=== PATIENT | male | born 1980 ===

== ENCOUNTER 2019-02-07 06:51 | Inpatient (IN) | payer OTHER ==
[~2019-02-07] VITALS: Ht 180.3 cm; Wt 112.5 kg
[2019-02-07] VITALS (15 sets, daily range): BP systolic 98–124; BP diastolic 57–80
[~2019-02-07 06:51] MED LIST: CLARITIN10 M2 ORAL; GLUCOSAMINE &1 EAC2 PO; VITAMIN C1000 M2 PO
[2019-02-07] MEDS ORDERED: ceFAZolin sod 1 GM in NS 55 ML IVPB ONE (07:00)
[2019-02-07] MEDS ORDERED: Thrombin 5000 units spray kit TOPIC ONE ×2 (07:18→10:12)
[2019-02-07] MEDS ORDERED: Vancomycin 1gm vial IVPB ONE (07:18)
[2019-02-07] MEDS ORDERED: Thrombin 5000 units TOPIC ONE ×3 (07:19→10:38)
[2019-02-07] MEDS ORDERED: Gelfoam Size TOPIC ONE ×2 (07:19→10:11)
[2019-02-07] MEDS ORDERED: Bacitracin 50000 Units Vial ONE (07:19)
[2019-02-07] MEDS ORDERED: Gelfoam Absorbable 1gm powder pkt TOPIC ONE ×2 (07:19→10:19)
[2019-02-07] MEDS ORDERED: Bupivacaine w/Epi 0.5% 30ml Vial INJ ONE (07:19)
--- NOTE | 2019-02-07 07:20 | NUR ---
IV LR WAS STARTED BY TORIE ARVIZU RN. NO S/S OF INFILTRATION. TYPE AND SCREEN WAS DRAWN.
[2019-02-07] MEDS ORDERED: Midazolam 2mg/2ml Inj ONE (07:41)
[2019-02-07] MEDS ORDERED: fentaNYL 100 mcg/2 mL IV ONE (07:41)
[2019-02-07] MEDS ORDERED: Lidocaine 1% MPF 10mg/ml 5ml ONE (07:42)
[2019-02-07] MEDS ORDERED: Zemuron 50mg/5ml Inj IV ONE (07:54)
[2019-02-07] MEDS ORDERED: Succinylcholine 20mg/ml 10ml vial ONE (07:54)
[2019-02-07] MEDS ORDERED: LR 1000ml ONE (09:00)
[2019-02-07] MEDS ORDERED: NS Irrig 1000ml ONE (09:00)
[2019-02-07] MEDS ORDERED: Sterile Water Irrig 1000ml IRRIG ONE (09:00)
[2019-02-07] MEDS ORDERED: Propofol 1,000mg/ 100ml btl IV ONE (09:00)
--- NOTE | 2019-02-07 09:24 | Pre-Procedure Note/Attestation ---
Pre-Procedure Note/Attestation Complete Prior to Procedure Procedure Narrative: l5s1 B laminoforaminotomy Indications for Procedure Pre-Operative Diagnosis: spinal stenosis with BLE radiculopathy Attestation I attest that I discussed the nature of the procedure; its benefits; risks and complications; and alternatives (and the risks and benefits of such alternatives ), prior to the procedure, with the patient (or the patient's legal field sales representative). I attest that, if there was a reasonable possibility of needing a blood transfusion, the patient (or the patient's legal field sales representative) was given the [facility] standardized written summary, pursuant to the Jordan Sumanth Blood Safety Act ([place] Health and Safety Code # 1645, as amended). I attest that I re-evaluated the patient just prior to the surgery and that there has been no change in the patient's H&P, except as documented below: Pako Flores MD Feb 07, 2019 09:24
[2019-02-07] MEDS ORDERED: BUPIVACAINE INJ ONE (09:34)
[2019-02-07] MEDS ORDERED: EPI INJ ONE (09:34)
[2019-02-07] MEDS ORDERED: Ketorolac 30mg Inj ONE (09:39)
[2019-02-07] MEDS ORDERED: Neostigmine 1mg/ml 10ml Inj ONE (09:39)
[2019-02-07] MEDS ORDERED: Sodium Chloride 10ml vial INJ ONE (09:39)
[2019-02-07] MEDS ORDERED: Glycopyrrolate 0.2mg/ml 1ml Vial ONE (09:39)
[2019-02-07] MEDS ORDERED: Morphine Sulfate 10mg/ml Inj ONE (09:39)
--- NOTE | 2019-02-07 09:52 | Anethesia Preoperative Eval ---
Anesthesia Pre-op PMH/ROS General Date of Evaluation: Feb 07, 2019 Time of Evaluation: 08:05 Anesthesiologist: Leno ASA Score: ASA 2 Mallampati Score Class I : Soft palate, uvula, fauces, pillars visible Class II: Soft palate, uvula, fauces visible Class III: Soft palate, base of uvula visible Class IV: Only hard plate visible Mallampati Classification: Class II Surgeon: Sandra Diagnosis: Lumbar radiculopathy Surgical Procedure: L5-S1 laminotomy Anesthesia History: none Family History: no anesthesia problems Allergies: Coded Allergies: No Known Allergies (Unverified , 02/03/19) Medications: see eMAR Patient NPO?: Yes NPO Date: Feb 06, 2019 NPO Time: 1900 Past Medical History Cardiovascular: Denies: HTN, CAD, ID, valve dz, arrhythmia, other Pulmonary: Denies: asthma, COPD, LAMONTE, other Gastrointestinal/Genitourinary: Reports: GERD; Denies: CRI, ESRD, other Neurologic/Psychiatric: Reports: other - chronic pain; Denies: dementia, CVA, depression/anxiety, TIA Endocrine: Denies: DM, hypothyroidism, steroids, other HEENT: Denies: cataract (L), cataract (R), glaucoma, [place] (L), [place] (R), other Hematology/Immune: Denies: anemia, DVT, bleeding disorder, other Musculoskeletal/Integumentary: Denies: OA, RA, DJD, DDD, edema, other Other: other - overweight PMH Narrative: as above PSxH Narrative: Elbow Fx ORIF Anesthesia Pre-op Phys. Exam Physician Exam Last Vital Signs Date Time Temp Pulse Resp B/P (MAP) Pulse Ox O2 Delivery O2 Flow Rate FiO2 02/07/19 07:22 Room Air 02/07/19 07:20 97.1 65 20 118/80 (93) 97 Constitutional: NAD Neurologic: CN 2-12 intact Cardiovascular: RRR, no M/R/G Respiratory: CTA Gastrointestinal: S/NT/ND Airway Exam Mallampati Score: Class II MO: full Neck: flexible ROM: full Teeth: intact Dentures: no upper, no lower Anesthesia Pre-op A/P Labs see chart Studies Pre-op Studies: EKG - NSR, CXR - WNL Risk Assessment & Plan Assessment: ASA 2 Plan: GA with Ett prone position, neuromonitoring Status Change Before Surgery: No Pre-Antibiotics Drug: Ancef 2gr. Given Within 1 Hr of Incision: Yes Time Given: 09:08 Feng Burr MD Feb 07, 2019 09:52
[2019-02-07] MEDS ORDERED: LR 1000ml 1,000 ML IVLG SCH (09:53)
[2019-02-07] MEDS ORDERED: DiphenhydrAMINE 50mg/ml Inj IVP PRN (10:00)
[2019-02-07] MEDS ORDERED: Acetaminophen (Non formulary) 100 ML IV ONE (10:00)
[2019-02-07] MEDS ORDERED: Meperidine 50mg/ml Inj(FOR RIGORS ONLY) IV PRN (10:00)
[2019-02-07] MEDS ORDERED: Ketorolac 30mg Inj IV PRN (10:00)
[2019-02-07] MEDS ORDERED: Hydromorphone 0.5mg/0.5ml inj IVP PRN ×2 (10:00→16:06)
[2019-02-07] MEDS ORDERED: Bacitracin 50000 Units Vial IRRIG ONE (10:12)
--- NOTE | 2019-02-07 11:11 | Brief Operative Note ---
Immediate Post Operative Note Operative Note Pre-op Diagnosis: spinal stenosis with BLE radiculopathy Procedure: B L5s1 laminoforaminotomy, L discectomy Post-op Diagnosis: same as pre-op Findings: consistent w/pre-op dx studies Surgeon: yeni Director Of Special Services: shayy aguirre Anesthesiologist: danielle Anesthesia: general Specimen: yes - disc Complications: none Condition: stable Fluids: 1L Estimated Blood Loss: volume - 50 Drains: none Implant(s) used?: No Pako Flores MD Feb 07, 2019 11:11
--- NOTE | 2019-02-07 11:19 | Immediate Post-Op Evaluation ---
Immediate Post-Op Evalulation Immediate Post-Op Evalulation Procedure: L5-S1 laminotomy with decompression Date of Evaluation: Feb 07, 2019 Time of Evaluation: 11:18 IV Fluids: 1000 Blood Products: none Estimated Blood Loss: <50 Urinary Output: 250 Blood Pressure Systolic: 104 Blood Pressure Diastolic: 64 Pulse Rate: 78 Respiratory Rate: 20 O2 Sat by Pulse Oximetry: 99 Temperature (Fahrenheit): 98.1 Pain Score (1-10): 1 Nausea: No Vomiting: No Complications none Patient Status: reacts, patent, extubated, none Hydration Status: adequate Feng Burr MD Feb 07, 2019 11:19
[2019-02-07] MEDS ORDERED: Metoclopramide 10mg/2ml Inj IVP PRN (13:09)
--- NOTE | 2019-02-07 14:04 | Diagnostic Imaging Report ---
INDICATION: Pain, intraoperative TECHNIQUE: Intraoperative imaging Fluoroscopy time: 2.3 seconds Total dose: 0.02444 mGym2 Total number of images: 2 COMPARISON: None FINDINGS: Surgical needles project posterior to the L5-S1 disc. Subsequently a surgical tool is projecting posterior to the L4-5 and L5-S1 discs. IMPRESSION: Intraoperative imaging, as described
--- NOTE | 2019-02-07 14:10 | Cardiology Progress Note ---
Assessment/Plan Assessment/Plan [id number] Objective Last 24 Hour Vital Signs Date Time Temp Pulse Resp B/P (MAP) Pulse Ox O2 Delivery O2 Flow Rate FiO2 02/07/19 13:46 Nasal Cannula 2.0 02/07/19 12:50 98.4 02/07/19 12:40 98.4 72 17 111/67 99 Nasal Cannula 3 02/07/19 12:30 77 18 113/75 99 Nasal Cannula 3 02/07/19 12:29 98.4 02/07/19 12:18 80 17 111/77 99 Nasal Cannula 3 02/07/19 12:14 76 14 111/69 100 Nasal Cannula 3 02/07/19 11:59 74 13 108/67 99 Simple Mask 6 02/07/19 11:40 70 13 100/62 99 Simple Mask 6 02/07/19 11:25 76 13 110/57 99 Simple Mask 6 02/07/19 11:19 77 13 98/60 99 Simple Mask 6 02/07/19 11:19 78 20 99 02/07/19 11:14 98.0 84 17 104/63 100 Simple Mask 6 02/07/19 07:22 Room Air 02/07/19 07:20 97.1 65 20 118/80 (93) 97 Jelani Stuart MD Feb 07, 2019 14:10
[2019-02-07] MEDS: D5 1/2NS 1,000 ML IV SCH (15:07)
[2019-02-07] MEDS: ceFAZolin sod 1 GM in D5W 55 ML IV SCH (15:07)
[2019-02-07] MEDS: Docusate 100mg cap ORAL SCH (17:11)
--- NOTE | 2019-02-07 19:00 | Operative Note - Dictated ---
DATE OF OPERATION: 02/07/2019 SURGEON: Pako Flores MD. THREADER OPERATOR: Dharmesh Cai PA-C. ANESTHESIA: Feng Burr M.D. ANESTHESIA TYPE: General endotracheal anesthesia. 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 PROCEDURE: 1. Bilateral L5-S1 laminal foraminotomy and partial medial facetectomy. 2. Left-sided diskectomy L5-S1. 3. Use of fluoroscopy for localization. 4. Use of operating microscope. 5. Neurodiagnostic monitoring. 6. Lysis of adhesions, left side L5-S1. ESTIMATED BLOOD LOSS: Minimal, less than 50 mL. COMPLICATIONS: None. FLUIDS: 1 liter. INDICATIONS: The patient is a very pleasant gentleman, 38 years old with fairly intractable left greater than right lower extremity radiculopathic pain. He was initially counseled with regards to surgical intervention. He did have epidural injections, which gave him good overall relief, but the effects have worn off. Initially, the plan was on the left-sided decompression only. However, the patient requested the right side also addressed as the effect of the epidural has completely worn off and now the right lower extremity radiculopathic pain has come back once again in addition to the persistent left lower extremity radiculopathy. The patient understood and wished to proceed. RISK NOTE: The patient was explained in detail risks, benefits of surgery to include, but not be limited to those of bleeding, infection, damage to nerves, vessels, tendons, anesthetic risk, allergic reaction, aspiration, possibly , specifically dural leak, disc reherniation, continued pain, and need for additional surgery was discussed. OPERATIVE PROCEDURE IN DETAIL: The patient was taken to the operating suite. After general endotracheal anesthesia was obtained, Smith catheter was placed. The patient was positioned prone onto a radiolucent Rayo table. The back was prepped and draped in usual sterile fashion. Two needles were placed at L4-L5 and L5-S1 for localization and verified radiographically. At this point, back was infiltrated with lidocaine and Marcaine with epinephrine. Incision was carried out from L4 through S1. Subperiosteal dissection was carried out. Self-retaining retractors were put into place after a curved curette was placed under the lamina of L5 and radiographically the level was confirmed. The microscope was then brought into place. Attention was first turned onto the left side, which was most problematic. Hemilaminectomy was performed with use of a high-speed drill, curved curette to mobilize the ligamentum flavum, and the ligamentum flavum was removed in a piecemeal fashion. 10 to 20 percent medial facetectomy was performed on the left side. There was a fair amount of fat in the epidural space consistent with epidural lipomatosis. At this point, the nerve root was gently medialized and there was noted to be extensive neovascularization and adhesions adjacent to the S1 nerve root consistent with chronic inflammatory changes. The epidural veins were all bipolar and meticulous mobilization of the nerve root allowed for comprehensive neurolysis. At this point, the disk was incised and a subligamentous disc extrusion was identified between the posterior longitudinal ligament and the posterior anulus. This was evacuated. The annular rent was identified and a down pushing curette allowed for mobilization of the disk space. Minimal diskectomy was performed so as to not disrupt the endplates. However, all loose disk fragments were removed with both pituitary as well as intradiscal irrigation. At this point, once satisfied with the diskectomy and decompression, FloSeal was applied. This area was packed off. Attention was then turned onto the right side and in an identical fashion hemilaminectomy was performed using high-speed drill, curved curettes, Kerrison punch, and the ligamentum flavum was removed in a piecemeal fashion. Nerve root was identified and it was shifted medially consistent with lateral recess stenosis. With a thorough laminectomy and partial medial facetectomy, the nerve root did then rebound into the normal anatomic position. Both foramen at L5-S1 were probed and noted to be patent. Copious irrigation was then performed. Meticulous hemostasis was achieved. Due to the patient's large body habitus, a 500 mg of vancomycin powder was then placed deep to the fascia. Fascia was repaired using #1 Vicryl. Subcutaneous closure using 2-0 Vicryl. Dermabond and sterile dressing was applied. The patient tolerated the procedure well. He was turned onto his back, awakened, and extubated. Sponge and needle counts were correct. Pako Andrey Flores DR: ROMARIO JOB#: [id number] CC:
[2019-02-07] MEDS ORDERED: Chloraseptic Spray 20mL Bottle ORAL PRN (19:30)
[2019-02-07] MEDS ORDERED: Milk of Magnesia 30ml Ud ORAL PRN (19:30)
--- NOTE | 2019-02-07 19:32 | NUR ---
HAND-OFF: Report given to JAILENE Morales.
[2019-02-07] MEDS ORDERED: HYDROmorphone 1mg/ml Carpuject SUBQ SCH (19:40)
[2019-02-07] MEDS ORDERED: Tylenol #3 tab (300mg/30mg) ORAL PRN (19:42)
--- NOTE | 2019-02-07 19:45 | NUR ---
NURSE NOTES: PATIENT IN BED, S/P LAMINOTOMY WITH DECOMPRESSION. DRESSING INTACT, DRY ON LOWER BACK. RH 18G INTACT, PATENT RUNNING FLUIDS. ON O2 3L VIA NC, NO SOB, NO ACUTE DISTRESS. SCDs IN USE ON BLE, ELEVATED ON PILLOW. BED IN LOWEST POSITION, LOCKED, ALARMS ON. CALL LIGHT IN REACH.
[2019-02-07] MEDS ORDERED: Tamsulosin 0.4mg cap ORAL SCH (20:30)
--- NOTE | 2019-02-07 21:45 | NUR ---
NURSE NOTES: Pt walked to toilet with walker+assistance and successfully voided.
[2019-02-07] MEDS: oxyCODONE 5mg IR tab ORAL PRN (22:00)
--- NOTE | 2019-02-07 22:15 | Consultation ---
DATE OF CONSULTATION: 02/07/2019 INTERNAL MEDICINE CONSULTATION CONSULTING PHYSICIAN: Jelani Stuart M.D. REFERRING PHYSICIAN: Pako Flores M.D. REASON FOR REFERRAL: Postoperative medical care. HISTORY OF PRESENT ILLNESS: A 38-year-old gentleman, who I am seeing postoperatively for continued medical care. The patient preoperatively had been evaluated by Dr. Bautista. Postoperatively, he denies any chest pain or shortness of breath. No PND. No orthopnea. He does have some degree of tickling in his throat. He thinks because of dry throat. No nausea or vomiting. PAST MEDICAL HISTORY: Positive for low back pain with radiculopathy, seasonal allergies, and history of mild abnormal liver function test that apparently resolved. PAST SURGICAL HISTORY: Includes epidural and left elbow surgery. ALLERGIES: He is not allergic to any medication. FAMILY HISTORY: Father at 54 of heart failure and diabetes. Mother at 56 of colon cancer. One brother and one sister are healthy. Three daughters healthy. SOCIAL HISTORY: He does not smoke at the present time. Denies any drug use and denies any marijuana use. REVIEW OF SYSTEMS: GASTROINTESTINAL: Negative. GENITOURINARY: Negative. PULMONARY: As mentioned, some coughing. CONSTITUTIONAL: Negative. NEUROLOGIC: Negative. PHYSICAL EXAMINATION: GENERAL: Shows to be a middle-aged gentleman, in no respiratory distress. NECK: Supple. No jugular venous distention. LUNGS: Clear to auscultation and percussion. CARDIAC: S1 is normal and S2 is normal. Regular rate and rhythm. No heaves, thrills, or gallops noted. ABDOMEN: Soft and nontender. Positive bowel sounds. EXTREMITY: Pneumatic compression stockings are in place. No clubbing, cyanosis, or edema. LABORATORY DATA: Laboratory values preoperatively has been reviewed from Dr. Bautista's notes. INR 1 and PTT of 26. Sodium 141, potassium 4.0, chloride 103, bicarb 29, BUN of 12, creatinine 0.9, and glucose of 91. White count 7, hemoglobin 15.4, and platelet count of 169,000. Total CPK of 74. TSH of 1.45. A1c of 5.5, and sedimentation rate of 3. Preop EKG was reviewed as well. ASSESSMENT: 1. Low back pain secondary to spinal stenosis. 2. Radiculopathy. PLAN: This patient was seen postoperatively by medical consultation for post L5-S1 laminoforaminotomy and left diskectomy. He is doing relatively well postoperatively. His vital signs seem to be stable with blood pressure 111/67 with heart rate 82, temperature 98.2, and 99% saturation on 3 liters. He will be followed postoperatively. His pneumatic compression stockings for DVT prophylaxis and incentive spirometer will be discussed with the patient. Hopefully, he will be able to ambulate soon and will be discharged tomorrow morning. Importance of incentive spirometer use were discussed with the patient. Jelani Stuart M.D. DR: DESHAWN JOB#: [id number] CC:
[2019-02-08] VITALS: BP 111/64
[2019-02-08] MEDS: ceFAZolin sod 1 GM in D5W 55 ML IV SCH ×2 (00:04→08:29)
[2019-02-08] MEDS: HYDROmorphone 1mg/ml Carpuject SUBQ PRN ×4 (00:13→20:29)
[2019-02-08] MEDS: D5 1/2NS 1,000 ML IV SCH ×3 (01:30→13:58)
--- NOTE | 2019-02-08 02:31 | Consultation ---
DATE OF CONSULTATION: 02/07/2019 ACUTE PAIN CONSULT CONSULTING PHYSICIAN: Cheko Arteaga M.D. REFERRING PHYSICIAN: Pako Flores M.D. HISTORY OF PRESENT ILLNESS: Dear Dr. Pako Flores, Thank you kindly for consulting me to evaluate and render an opinion as to how to proceed in the management of the patient's acute postoperative lumbar spine pain after his lumbar spine surgery today. 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 He injured his lumbar spine and failed epidural and conservative treatment. Today, he underwent lumbar spine decompressive surgery. He is complaining of 9/10 postoperative pain despite several doses of postoperative narcotic analgesic trials. On your request, I saw the patient for acute pain consultation. I saw the patient at the bedside with the nurse, Marjorie. I performed a detailed history and physical examination. I spent over 75 minutes in consultation with an additional 30 minutes in medical record review. Multiple records were reviewed from the patient's hospital chart including utilization review and surgical authorization by Zoe on 01/10/2019 authorizing decompressive lumbar spine surgery as certified and authorized. Further record reviewed include preoperative history and physical by Dr. Jerome Bautista on 01/31/2019 along with diagnostic testing with laboratory studies, a 12-lead EKG, pulmonary function testing, an MRI lumbar spine report. Further record review include preoperative primary treating physician's progress report by Dr. Pako Flores. Date of service, 12/21/2018. Multiple records were reviewed from today's date of surgery at [facility] including records from today's operation 02/07/2019 including consent for surgical treatment, consent for anesthesia, consent for blood products, medication administration record, medication reconciliation order form, PACU record, PACU orders, anesthesia record, pre and post anesthesia evaluation record, postoperative spine surgical orders, and postoperative surgery report by Dr. Flores, a 24-hour medical/surgical flow sheet, initial nursing assessment, Rachid for cognitive disability. Further record review include preoperative laboratory studies on 01/31/2019. PAST MEDICAL HISTORY: 1. Acute postoperative lumbar spine pain, status post lumbar spine decompressive surgery by Dr. Pako Flores in January 2019. 2. Mild obesity. 3. Work-related injury. PAST SURGICAL HISTORY: Lumbar epidural steroid injection in November 2018 and left elbow surgery in 2012. SOCIAL HISTORY: The patient lives at home with his in [place], [place]. He denies tobacco or marijuana usage. FAMILY HISTORY: Diabetes, coronary artery disease, and colon cancer. REVIEW OF SYSTEMS: Per Dr. Jerome Bautista. PHYSICAL EXAMINATION: VITAL SIGNS: Age 38, height 5 feet 11 inches, weight 230 pounds, and body mass index 32. VITAL SIGNS: Shows pain level 8/10 on the visual analog pain scale. Afebrile, pulse 70, respirations 18, blood pressure 110/71, and oxygen saturation 96% on room air. HEENT: Normocephalic and atraumatic. No Dick's palsy. No Marek syndrome. No nuchal rigidity. Extraocular muscles intact. Pupils are equal, round, and accommodative. No thyromegaly. No carotid bruits. CHEST: Clear to auscultation. HEART: Regular rate and rhythm. ABDOMEN: Mildly obese. Positive bowel sounds. No rebound or guarding appreciated. BACK: Lumbar spine with dry dressing. Pain by incision area with minimal paraspinal muscle spasms appreciated. Straight leg raising deferred secondary to pain. GENITOURINARY: Deferred. DIAGNOSTIC DATA: Diagnostic testing shows 12-lead EKG, heart rate 97 dated 01/29/2019. No evidence for acute cardiac ischemia. Pulmonary function testing shows within normal limits on 01/29/2019. MRI lumbar spine dated 06/21/2018 L5-S1 with a 4 to 5 mm focal left paracentral disk protrusion causing left lateral recess narrowing with a mass effect and posterior displacement of the traversing left S1 nerve root. LABORATORY DATA: Laboratory studies from 01/31/2019 shows glucose 91, sodium 141, potassium 4.0, chloride 103, bicarb 29, BUN 12, and creatinine 1.0. Calcium 9.6. Total protein 7.0. Albumin 4.4. AST 30, ALT 56, and alkaline phosphatase 77. Total bilirubin 0.9. TSH is 1.5. Glycosylated hemoglobin normal at 5.1. White count 7, hematocrit 47, and platelets 169,000. INR 1.1. PTT 29. IMPRESSION: 1. Acute postoperative lumbar spine pain, status post lumbar spine decompressive surgery by Dr. Pako Flores in January 2019. 2. Mild obesity. 3. Work-related injury. TREATMENT AND RECOMMENDATIONS: I had a detailed discussion with the patient at bedside taking a narcotic history and trying to select the most appropriate postoperative analgesics to optimize his pain control while minimizing side effects. The hope will be to expedite his discharge planning. The patient will need to ambulate with physical therapy training tomorrow on postop day #1. A lumbar spine back brace has already been dispensed for the patient's usage. The patient was trialed on IV Dilaudid. This dosing was ineffective. I have ordered a 1 mg subcutaneous dose of Dilaudid right away as a catch-up dose and I will continue this dosing every three hours p.r.n. The patient believes he has trialed Tylenol with codeine in the past, but I have ordered Tylenol with codeine 1 tablet orally every 4 hours p.r.n. for mild pain. I have selected a dose of oxycodone 10 mg orally every three hours p.r.n. for moderate pain. The patient states that Celina has caused severe constipation in the past. I will try to avoid this medication. He does not appear to be anxious. I would avoid the class of benzodiazepine at this time. I also would hold off on the use of muscle relaxants and concentrate on MU-opioid analgesics for primary analgesia. I will empirically place the patient on Pepcid 20 mg b.i.d. for GI ulcer prophylaxis. I have ordered p.r.n. dose of Mylanta 30 mL q.6 hours in case of any GERD symptom exacerbation. The patient will be placed on Colace b.i.d. to help with bowel regularity. I have also ordered p.r.n. dose of milk of magnesia as a rescue laxative. In case of any itching complaints, I have ordered Benadryl 25 mg q.6 hours p.r.n. I have ordered Chloraseptic spray to the bedside to help with any sore throat complaints postoperatively. I will add a p.r.n. dose of Catapres 0.1 mg orally every 8 hours in case of any hypertensive readings greater than 160 mmHg. Zofran is available as a rescue antiemetic. The patient has not yet voided urine since recovery room. I have ordered a dose of Flomax 0.4 mg orally, to help reduce the risk for urinary retention issues. I have ordered incentive spirometer to encourage good pulmonary toilet. I will defer DVT prophylaxis to the surgeon. Cheko Arteaga M.D. DR: COLBY JOB#: [id number] CC:
--- NOTE | 2019-02-08 07:38 | NUR ---
NURSE NOTES: Received pt from JAILENE RAGLAND. Pt is alert and orient x4. pt has intact iv access RH 18G is running well. Pt is eating breakfast and tolerate well. all needs attended, bed is locked and is in the lowest position. call light within easy reach. will continue to monitor.
--- NOTE | 2019-02-08 07:41 | NUR ---
HAND-OFF: Report given to Saritha DENT.
[2019-02-08 08:00] VITALS: BP 117/73
[2019-02-08] MEDS: Docusate 100mg cap ORAL SCH ×2 (08:29→17:13)
--- NOTE | 2019-02-08 08:49 | Orthopedic Spine Progress Note ---
Ortho Spine - Progress Note Subjective Symptoms: c/o post-op back pain, improved - as compared to pre-op Objective Vital Signs: Last 24 Hour Vital Signs Date Time Temp Pulse Resp B/P (MAP) Pulse Ox O2 Delivery O2 Flow Rate FiO2 02/08/19 08:00 97.6 80 18 117/73 (88) 97 02/08/19 00:00 98.0 74 18 111/64 (80) 96 02/07/19 21:00 Nasal Cannula 2.0 02/07/19 20:00 97.2 67 18 124/75 (91) 99 02/07/19 17:41 98.4 02/07/19 15:45 98.2 70 18 110/71 (84) 96 02/07/19 14:45 97.9 76 18 117/74 (88) 96 02/07/19 13:46 Nasal Cannula 2.0 02/07/19 13:45 98.5 80 18 116/70 (85) 96 02/07/19 13:15 98.3 78 18 116/68 (84) 97 02/07/19 12:50 98.4 02/07/19 12:40 98.4 72 17 111/67 99 Nasal Cannula 3 02/07/19 12:30 77 18 113/75 99 Nasal Cannula 3 02/07/19 12:29 98.4 02/07/19 12:18 80 17 111/77 99 Nasal Cannula 3 02/07/19 12:14 76 14 111/69 100 Nasal Cannula 3 02/07/19 11:59 74 13 108/67 99 Simple Mask 6 02/07/19 11:40 70 13 100/62 99 Simple Mask 6 02/07/19 11:25 76 13 110/57 99 Simple Mask 6 02/07/19 11:19 77 13 98/60 99 Simple Mask 6 02/07/19 11:19 78 20 99 02/07/19 11:14 98.0 84 17 104/63 100 Simple Mask 6 I&O: Intake and Output 02/07/19 02/08/19 19:00 07:00 Intake Total 1655 ml 1191 ml Output Total 280 ml Balance 1375 ml 1191 ml Intake IV Total 1655 ml 955 ml Other 236 ml Output Urine Total 250 ml Estimated Blood Loss 30 ml Wound: clean, intact Drains: none Neuro Status: normal Assessment Procedure Performed: B L5s1 laminoforaminotomy, L discectomy Plan Plan: PT, pain management, discharge plan Pako Flores MD Feb 08, 2019 08:49
--- NOTE | 2019-02-08 10:57 | NUR ---
*-* NO INSURANCE INFORMATION ON THE BAR TO SEND CLINICALS *-*
[2019-02-08 11:55] VITALS: BP 117/65
[2019-02-08 12:00] VITALS: BP 123/73
--- NOTE | 2019-02-08 12:34 | 48 Hour Post Anesthesia Eval ---
Post Anesthesia Evaluation Procedure: L5-S1 laminotomy with decompression Date of Evaluation: Feb 08, 2019 Time of Evaluation: 12:33 Blood Pressure Systolic: 128 0: 76 Pulse Rate: 58 Respiratory Rate: 20 Temperature (Fahrenheit): 97.6 O2 Sat by Pulse Oximetry: 98 Airway: patent Nausea: No Vomiting: No Pain Intensity: 3 Hydration Status: adequate Cardiopulmonary Status: stable Mental Status/LOC: patient returned to baseline Follow-up Care/Observations: n/a Post-Anesthesia Complications: none Follow-up care needed: N/A Feng Burr MD Feb 08, 2019 12:34
[2019-02-08] MEDS: oxyCODONE 5mg IR tab ORAL PRN (13:53)
--- NOTE | 2019-02-08 14:22 | NUR ---
P.T NOTE: LATE ENTRY 0945 P.T EVALUATION COMPLETED AND TREATMENT INITIATED PER SPINAL PROTOCOL. PLEASE REFER TO P.T EVALUATION FOR CURRENT FUNCTIONAL STATUS. 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
[2019-02-08] MEDS ORDERED: HYDROmorphone 1mg/ml Carpuject SUBQ SCH (15:00)
--- NOTE | 2019-02-08 15:08 | NUR ---
CASE MANAGEMENT:REVIEW 02/07/19 38 YR OLD MALE HERE FOR ELECTIVE SURGERY SI: SPINAL STENOSIS W/BLE RADICULOPATHY 97.1 65 20 118/80 97% ON RA IS: TO SURGERY FOR: LAMINOFORAMINOTOMY. LT DISCECTOMY IV ANCEF Q8HRS : TO MED/SURG POST OP 02/08/19 SI: POD #1 97.4 75 19 123/73 97% ON RA IS: DILAUDID SQ Q3HRS PRN PEPCID PO BID : MED/SURG STATUS 3 [facility]
[2019-02-08 16:00] VITALS: BP 123/67
--- NOTE | 2019-02-08 19:55 | NUR ---
HAND-OFF: Report given to JAILENE VASQUEZ.
[2019-02-08 20:00] VITALS: BP 121/73
--- NOTE | 2019-02-08 20:05 | NUR ---
NURSE NOTES: Pt received from JAILENE Melara alert and oriented x4 ambulating in the hallway with with front wheel walker. IV site asymptomatic and patent on R hand 18g on saline lock. No acute s/s of distress. Dressing dry and intact. Belongings and call light within reach.
--- NOTE | 2019-02-08 20:39 | Cardiology Progress Note ---
Assessment/Plan Assessment/Plan 1. Low back pain secondary to spinal stenosis. 2. Radiculopathy. doign well post op still no bm walked dvt ppx IS home soon Subjective Cardiovascular: Denies: chest pain, lightheadedness, palpitations Respiratory: Denies: shortness of breath Gastrointestinal/Abdominal: Denies: abdominal pain Genitourinary: Denies: burning Objective Last 24 Hour Vital Signs Date Time Temp Pulse Resp B/P (MAP) Pulse Ox O2 Delivery O2 Flow Rate FiO2 02/08/19 16:00 97.9 86 20 123/67 (85) 98 02/08/19 15:40 97.6 02/08/19 12:34 58 20 98 02/08/19 12:00 97.4 75 19 123/73 (90) 97 02/08/19 10:36 97.6 02/08/19 09:00 Room Air 02/08/19 08:00 97.6 80 18 117/73 (88) 97 02/08/19 00:00 98.0 74 18 111/64 (80) 96 02/07/19 21:00 Nasal Cannula 2.0 General Appearance: no apparent distress, alert Neck: supple Cardiovascular: normal rate Respiratory/Chest: lungs clear Abdomen: normal bowel sounds, non tender, soft Extremities: no swelling, other - pneumoatic stokcin in place Intake and Output 02/07/19 02/08/19 19:00 07:00 Intake Total 1655 ml 1191 ml Output Total 280 ml Balance 1375 ml 1191 ml IV Total 1655 ml 955 ml Other 236 ml Output Urine Total 250 ml Estimated Blood Loss 30 ml Jelani Stuart MD Feb 08, 2019 20:39
[2019-02-09] VITALS: BP 125/68
--- NOTE | 2019-02-09 00:45 | Progress Note ---
DATE: 02/08/2019 ACUTE PAIN MANAGEMENT PHYSICIAN PROGRESS NOTE MEDICATIONS: Medication administration record reviewed. Medications include Tylenol, Tylenol No. 3 with codeine, Mylanta, Catapres, Benadryl, Colace, Pepcid, Dilaudid, milk of magnesia, Zofran, oxycodone, Chloraseptic spray, and Restoril. LABORATORY STUDIES: No interval laboratory studies. OBJECTIVE: Vital signs within normal limits. Afebrile. Pulse 68, respirations 20, blood pressure 123/73, and oxygen saturation 98% on room air. I saw the patient at the bedside. I discussed the case with the nurse, Saritha and discussed the case with the surgeon, Dr. Flores and the charge nurse RN, Amber. The patient has been ambulating with a front wheel walker after physical therapy training. He is having global pain from the lumbar spine to the toes, but believes he is feeling better than preoperatively. He thinks that his chest feels sore after surgery. His focal lower extremity radicular symptoms seem to be improving compared to preop. The patient has been using the oral codeine pills with only mild nausea with first dosing. He is still requiring the breakthrough Dilaudid injections, which I recommended to continue while he is here in the hospital for the next 24 hours to help moderate his pain complaints. At this point, his pain probably is not adequately controlled to be able to discharged home at this time. I have asked the nursing team to fax my prescription for pain medication to his outpatient pharmacy, to help expedite dispensing and to avoid discharge delays. We will continue the antiemetics as needed for nausea symptoms. I will Hep-Lock his IV fluids since he is tolerating oral intake; and Hep-Lock in addition enable him to move in and out of bed more frequently. The patient has been compliant using the incentive spirometer. He has normal vital signs. He will continue ambulating with a front wheel walker as tolerated. Cheok Arteaga M.D. DR: COLBY JOB#: [id number] CC:
[2019-02-09 04:00] VITALS: BP 124/71
--- NOTE | 2019-02-09 04:50 | NUR ---
NURSE NOTES: RN faxed Percoc[facility] fax to [facility] for pt to receive meds upon returning home. Per [facility], the patient must present a physical copy of the prescription before it can be processed because it is a narcotic. Endorsed to Charge Nurse Darryl. Will endorse to morning RN.
[2019-02-09] MEDS: HYDROmorphone 1mg/ml Carpuject SUBQ PRN ×2 (05:00→09:45)
--- NOTE | 2019-02-09 07:45 | NUR ---
NURSE NOTES: WALKING ROUNDS DONE WITH OUTGOING RN. PATIENT ASLEEP IN BED BUT EASY TO AROUSE. SURGICAL SITE ASSESSED. QUESTIONS ANSWERED NEEDS MET. DISCUSSED PLAN OF CARE FOR THE DAY. VERBALIZED UNDERSTANDING. CALL LIGHT WITHIN REACH. BED IN LOW AND LOCKED POSITION.
--- NOTE | 2019-02-09 07:45 | NUR ---
HAND-OFF: Report given to JAILENE Marcus.
[2019-02-09 08:00] VITALS: BP 124/81
--- NOTE | 2019-02-09 09:21 | Orthopedic Spine Progress Note ---
Ortho Spine - Progress Note Subjective Symptoms: c/o post-op back pain, improved - as compared to pre-op Objective Vital Signs: Last 24 Hour Vital Signs Date Time Temp Pulse Resp B/P (MAP) Pulse Ox O2 Delivery O2 Flow Rate FiO2 02/09/19 04:00 98.8 96 19 124/71 (88) 98 02/09/19 00:00 98.7 98 18 125/68 (87) 98 02/08/19 21:00 Room Air 02/08/19 20:00 98.1 93 18 121/73 (89) 98 02/08/19 16:00 97.9 86 20 123/67 (85) 98 02/08/19 15:40 97.6 02/08/19 12:34 58 20 98 02/08/19 12:00 97.4 75 19 123/73 (90) 97 02/08/19 10:36 97.6 I&O: Intake and Output 02/08/19 02/09/19 19:00 07:00 Intake Total 1800 ml 360 ml Output Total 900 ml Balance 1800 ml -540 ml Intake Oral 1200 ml 360 ml IV Total 600 ml Output Urine Total 900 ml # Voids 5 3 Wound: clean, intact Drains: none Neuro Status: normal Assessment Procedure Performed: B L5s1 laminoforaminotomy, L discectomy Plan Plan: PT, pain management, discharge to home Pako Flores MD Feb 09, 2019 09:21
[2019-02-09] MEDS: Docusate 100mg cap ORAL SCH (09:44)
[2019-02-09] MEDS ORDERED: PERCOCET 10-321 EACH ORAL (10:46)
--- NOTE | 2019-02-09 11:30 | NUR ---
NURSE NOTES: PATIENT REMAINS STABLE. SEEN BY P.T. AMBULATED WITH WALKER IN HALLWAY. GAIT STEADY. SEEN BY SURGEON. OK TO DISCHARGE PER DR. DOYLE. PLACED CALL TO DR. COOMBS; OK TO CT HOME WELL. PATIENT AWARE. PRESCRIPTION FAXED TO [facility]; AWAITNG DELIVERY.
--- NOTE | 2019-02-09 13:00 | NUR ---
NURSE NOTES: DISCHARGE INSTRUCTIONS REVIEWED WITH PATIENT AND FRIEND AT BEDSIDE. RX FILLED. PATIENT EDUCATION GIVEN TO WELL. VERBALIZED UNDERSTANDING.ALL BELONGINGS WITH PT AND DME EQUIPMENT GIVEN FOR HOME USAGE. PATIENT ESCORTED TO CAR VIA WC. WILL F/U WITH DR. DOYLE DISCUSSED PRIOR TO DISCHARGE.
--- NOTE | 2019-02-09 13:30 | Progress Note ---
DATE: 02/09/2019 ACUTE PAIN MANAGEMENT PHYSICIAN PROGRESS NOTE MEDICATIONS: Medication administration record reviewed. Medications include Tylenol, Mylanta, Catapres, Benadryl, Colace, Pepcid, Dilaudid, milk of magnesia, Zofran, oxycodone, Chloraseptic spray, and Restoril. LABORATORY STUDIES: No interval laboratory studies. OBJECTIVE: VITAL SIGNS: Afebrile, pulse 96, respirations 19, blood pressure 124/71, and oxygen saturation 98% on room air. I saw the patient at the bedside after discussion with the nurse RN, Kyrie. The patient continues to increase his confidence with ambulation. He has been using p.r.n. Restoril, p.r.n. oxycodone as well as p.r.n. subcutaneous Dilaudid for his pain control. I did leave a prescription for Percocet pills for outpatient usage. The patient will try to have the outpatient hospital pharmacy fill the prescription with either his worker's comp or [employer] insurance to expedite dispensing of the medication. The patient also has multiple requests for DME equipment including raised toilet seat and front wheel walker. The case coordinator and Dr. Flores's office will discuss these matters. The patient is afebrile. The patient denies any shortness of breath or chest pain. The patient is tolerating food without nausea symptoms. The patient does not appear to be anxious. He is breathing comfortably on room air. At this point, I see no contraindication for discharge trial home per the patient's . The patient has arranged transportation later today. Cheko Arteaga M.D. DR: EVERARDO JOB#: [id number] CC:
--- NOTE | 2019-02-13 07:50 | Discharge Summary ---
Discharge Summary Discharge Summary _ DATE OF ADMISSION: 02/07/2019 DATE OF DISCHARGE: 02/09/2019 DISCHARGED BY: Dr. Jelani Stuart SURGEON: Dr. Pako Flores METAL BONDING ASSEMBLER: Dr. Cheko Arteaga BRIEF HOSPITAL COURSE: Patient is a 38-year-old male, who was admitted on 02/07/2019 and underwent bilateral L5-S1 laminal foraminotomy and partial medial facetectomy; left-sided discectomy L5-S1. He tolerated procedure well. Surgery was uneventful. Post- operatively, patient was admitted for post-op care. He was placed on SCDs for DVT prophylaxis and was encouraged use of incentive spirometer. Patient was given pain management. He was seen by PT. he was provided lumbar spine back brace. Diet was advanced. Incision was clean, dry and intact. Patient was ambulating well with good pain control and was tolerating diet. He was provided with DME. Patient was eventually cleared for discharge home. 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 PROCEDURE: 1. Bilateral L5-S1 laminal foraminotomy and partial medial facetectomy. 2. Left-sided diskectomy L5-S1. 3. Use of fluoroscopy for localization. 4. Use of operating microscope. 5. Neurodiagnostic monitoring. 6. Lysis of adhesions, left side L5-S1. (Refer to Operative Report) DISCHARGE DISPOSITION: Patient was discharged home. DISCHARGE MEDICATIONS: Refer to Medication Reconciliation Sheet. DISCHARGE INSTRUCTIONS: Post-op instructions given. Follow-up in a week. I have been assigned to complete a DC summary on this account, I was not involved with the patient's management. Alice Kirkland NP Feb 13, 2019 07:50
== END 2019-02-09 13:15 | disposition home or self-care (01) | DRG 520 ==
LOC: SDSOVERFLO 06:51 → 3E 12:45
PROC: 0SB40ZZ Excision of Lumbosacral Disc, Open Approach (ICD-10-PCS; principal; 2019-02-07 08:30)
PROC: 01NB0ZZ Release Lumbar Nerve, Open Approach (ICD-10-PCS; principal; 2019-02-07 08:30)
DX: M51.17 Intervertebral disc disorders with radiculopathy, lumbosacral region (principal); E66.9 Obesity, unspecified; M48.07 Spinal stenosis, lumbosacral region
CPT/HCPCS: 36415; 72020; 76000; 86850; 86900; 86901; 87081; 94003; 94150; J2250; J2405; J2710